=== PATIENT | female | born 1985 | race Two or more races ===

== ENCOUNTER 2025-08-12 14:05 | Inpatient (IN) | payer BC, OTHER ==
[~2025-08-12] VITALS: Ht 165.1 cm; Wt 122.2 kg
--- NOTE | 2025-08-12 14:28 | ED.PDOC ---
History of Present Illness HPI Comments 39 y/o F, with PMHx of HTN presents to the ED for CC of hypertension. Patient states, that she went to her annual check up with her PCP today (08/12/25) when she was relayed to the ED d/t her high blood pressure. Patient reports, to have had prior knowledge of her medical history however, endorses being non-complaint with her medications. Patient denies dizziness, headache, nausea, vomiting, or blurred vision. No other symptoms or modifying factors are present at this time. 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 Hx Family History Family History: Unknown Social History Smoker: Cigarettes Alcohol: Occasionally Drugs: Denies Drug Use Lives In: Home Constitutional: denies: chills, diaphoresis, fatigue, fever, malaise, sweats, weakness, others EENTM: denies: blurred vision, double vision, ear bleeding, ear discharge, ear drainage, ear pain, ear ringing, eye pain, eye redness, hearing loss, mouth pain, mouth swelling, nasal discharge, nose bleeding, nose congestion, nose pain, photophobia, tearing, throat pain, throat swelling, voice changes, others Respiratory: denies: cough, hemoptysis, orthopnea, SOB at rest, shortness of breath, SOB with excertion, stridor, wheezing, others Cardiovascular: denies: chest pain, dizzy spells, diaphoresis, Dyspnea on exertion, edema, irregular heart beat, left arm pain, lightheadedness, palpitations, PND, syncope, others Gastrointestinal: denies: abdomen distended, abdominal pain, blood streaked bowels, constipated, diarrhea, dysphagia, difficulty swallowing, hematemesis, melena, nausea, poor appetite, poor fluid intake, rectal bleeding, rectal pain, vomiting, others Genitourinary: denies: abnormal vagina bleeding, burning, dyspareunia, dysuria, flank pain, frequency, hematuria, incontinence, pain, , vagina discharge, urgency, others Neurological: denies: dizziness, fainting, headache, left sided numbness, left sided weakness, numbness, paresthesia, pre-existing deficit, right sided numbness, right sided weakness, seizure, speech problems, tingling, tremors, weakness, others Musculoskeletal: denies: back pain, gout, joint pain, joint swelling, muscle pain, muscle stiffness, neck pain, others Integumetry: denies: bruises, change in color, change in hair/nails, dryness, laceration, lesions, lumps, rash, wounds, others Allergic/Immunocompromised: denies: Difficulty Healing, Frequent Infections, Hives, Itching, others Hematologic/Lymphatic: denies: anemia, blood clots, easy bleeding, easy bruising, swollen glands, others Endocrine: denies: excessive hunger, excessive sweating, excessive thirst, excessive urination, flushing, intolerance to cold, intolerance to heat, unexplained weight gain, unexplained weight loss, others Psychiatric: denies: anxiety, bipolar disorder, depression, hopeless, panic disorder, schizophrenia, sleepless, suicidal, others All Other Systems: Reviewed and Negative Physical Exam General Appearance: No Apparent Distress, Normal HEENT: Normal ENT Inspection, Pharynx Normal Neck: Full Range of Motion, Non-Tender, Normal, Normal Inspection Respiratory: Chest Non-Tender, Lungs Clear, No Accessory Muscle Use, No Respiratory Distress, Normal Breath Sounds Cardiovascular: No Edema, No Murmur, No Gallop, Normal Peripheral Pulses, Regular Rate/Rhythm Breast Exam: Deferred Gastrointestinal: No Organomegaly, Non Tender, No Pulsatile Mass, Normal Bowel Sounds, Soft Genitalia: Deferred Pelvic: Deferred Rectal: Deferred Extremities: No calf tenderness, Normal capillary refill, Normal inspection, Normal range of motion, Non-tender, No pedal edema Musculoskeletal : Apperance: Normal Neurologic: Alert, nodulizer II-XII nml as Tested, No Motor Deficits, Normal Affect, Normal Mood, No Sensory Deficits Cerebellar Function: Normal Reflexes: Normal Skin: Dry, Normal Color, Warm Lymphatic: No Adenopathy Was a procedure done? Was a procedure done?: No Differential Dx Considerations may include: HYPERTENSIVE URGENCY, HYPERTENSIVE CRISIS, MEDICAL NON-COMPLIANCE. renal failure X-Ray, Labs, Meds, VS Vital Signs Date Time Temp Pulse Resp B/P (MAP) Pulse Ox O2 Delivery O2 Flow Rate FiO2 10/7/25 16:55 97.9 66 11 195/107 (136) 99 97.9 08/12/25 16:51 67 195/107 08/12/25 14:46 Room Air* 0 21 08/12/25 14:46 94 16 212/112 (145) 100 08/12/25 14:43 212/112 08/12/25 14:11 98.9 100 19 97 98.9 Lab Test 08/12/25 14:38 Range/Units Sodium Level 138 136-145 mmol/L Potassium Level 3.7 3.5-5.1 mmol/L Chloride Level 101 98-107 mmol/L Carbon Dioxide Level 25 20-31 mmol/L Anion Gap 12 5-15 Blood Urea Nitrogen 8 L 9-23 mg/dL Creatinine 0.73 0.550-1.02 mg/dL Glomerular Filtration Rate Calc 107 >90 mL/min BUN/Creatinine Ratio 11.0 10.0-20.0 Serum Glucose 107 H 74-106 mg/dL Calcium Level 9.8 8.7-10.4 mg/dL Current Medications Medications (Trade) Dose Ordered Sig/Kaleb Route Start Time Stop Time Status Last Admin Clonidine HCl (Catapres Tablet) 0.1 mg ONCE ONCE PO 08/12/25 14:30 08/12/25 14:31 DC 08/12/25 14:43 Labetalol HCl (Labetalol HCl) 10 mg ONCE ONCE IV 08/12/25 16:00 08/12/25 16:01 DC 08/12/25 16:51 Time of 1ST Reevaluation: 14:50 Reevaluation 1ST: Unchanged Patient Education/Counseling: Diagnosis, Treatment, Prognosis, Need For Follow Up Family Education/Counseling: No Family Present Comments This is a patient with uncontrolled hypertension due to noncompliance. Patient 's blood pressure is difficult to control with two doses of medications in the emergency room including IV labetalol. Patient will be admitted for further evaluation and treatment for the recalcitrant and hypertension. Additional Information The following tests were ordered, and results were reviewed by me: EDOUARD Additional information was gathered from interviewing the following independent historian: PATIENT'S SON I discussed treatments and results with medical personnel and: PATIENT Comprehensive systems review obtained and negative except for what is stated in the HPI. SEPSIS Sepsis Screen Date sepsis recognized/suspect: Aug 12, 2025 Time Sepsis recognized/suspect: 1411 Recent Procedure: No On Antibiotic Therapy: No Respiratory Rate >20: No Heart Rate >90: No Temp<36 C (96.8 F) or >38.3 C: No SBP <90 or MAP <65 mmHG: No New Acute Mental Status Change: No Is the patient on CPAP, BIPAP,: No Physician Orders Electrocardigram (08/12/25 14:23) Vital Signs Date Time Temp Pulse Resp B/P (MAP) Pulse Ox O2 Delivery O2 Flow Rate FiO2 08/12/25 16:55 97.9 66 11 195/107 (136) 99 97.9 08/12/25 16:51 67 195/107 08/12/25 14:46 Room Air* 0 21 08/12/25 14:46 94 16 212/112 (145) 100 08/12/25 14:43 212/112 08/12/25 14:11 98.9 100 19 97 98.9 Medications Medications Dose Ordered Sig/Kaleb Route Start Time Stop Time Status Last Admin Dose Admin Clonidine HCl 0.1 mg ONCE ONCE PO 08/12/25 14:30 08/12/25 14:31 DC 08/12/25 14:43 Labetalol HCl 10 mg ONCE ONCE IV 08/12/25 16:00 08/12/25 16:01 DC 08/12/25 16:51 Departure 1 Departure Time of Disposition: 17:45 Impression: Primary Impression: Uncontrolled hypertension Disposition: 09 ADMITTED INPATIENT Admit to: Tele Condition: Stable Discharged With: Self Critical Care Note Critical Care Time?: No Stability Stability form required: No Heart Score Heart Score: Heart Score Response (Comments) Value History N/A 0 EKG N/A 0 Age N/A 0 Risk Factors N/A 0 Troponin N/A 0 Total 0 I personally scribed for FRANCISCO J RODRIGUEZ MD ([email or web address]) on 08/12/25 at 14:28. Electronically submitted by Glenis Gross ([email or web address]). I personally scribed for FRANCISCO J RODRIGUEZ MD ([email or web address]) on 08/12/25 at 16:41. Electronically submitted by Glenis Gross ([email or web address]). FRANCISCO J RODRIGUEZ MD Aug 12, 2025 14:28
[2025-08-12 14:58] LABS: Anion Gap 12 (5-15); Carbon Dioxide 25 mmol/L (20-31); Chloride 101 mmol/L (98-107); Potassium 3.7 mmol/L (3.5-5.1); Sodium 138 mmol/L (136-145)
[2025-08-12 14:59] LABS: Calcium 9.8 mg/dL (8.7-10.4)
[2025-08-12 15:04] LABS: BUN/Creatinine Ratio 11.0 (10.0-20.0)
[2025-08-12 15:05] LABS: Blood Urea Nitrogen 8 mg/dL (9-23); Glucose 107 mg/dL (74-106)
[2025-08-12] MEDS: LABETALOL HCL 20 MG/4 ML VL IV ONE (16:51)
[2025-08-12] MEDS: NITROGLYCERIN 50MG/250ML 250 ML IV ONE (18:38)
[2025-08-12] MEDS ORDERED: NITROGLYCERIN 0.4 MG SL TAB SL PRN (19:45)
[2025-08-12] MEDS ORDERED: MORPHINE SULFATE INJ 2 MG/ml SYRG IV PRN (19:45)
[2025-08-12 19:48] LABS: Hematocrit 40.4 % (36.0-46.0); Hemoglobin 13.2 g/dL (12.2-16.2); Mean Corpuscular Hemoglobin 27.9 pg (28.0-32.0); Mean Corpuscular Volume 85.5 fL (80.0-100.0); Nucleated Red Blood Cells % 0.0 %
[2025-08-12 19:59] VITALS: PULSE 81; RESP 21; O2SAT 96
--- NOTE | 2025-08-12 20:08 | DVH ---
CLINICAL HISTORY: sob TECHNIQUE: Single view of the chest was obtained. COMPARISON: None FINDINGS: The heart size and pulmonary vasculature are normal. The lungs are clear. IMPRESSION: NO ACUTE CARDIOPULMONARY PROCESS.
[2025-08-12] MEDS: ONDANSETRON HCL 4 MG/2 ML VIAL IV PRN (23:36)
[2025-08-13] VITALS (89 sets, daily range): BP systolic 116–207; BP diastolic 62–112; PULSE 62–115; RESP 8–23; TEMP 98.2–98.7; O2SAT 91–100
--- NOTE | 2025-08-13 00:51 | DVHHP2 ---
History of Present Illness Reason for Visit: Hypertension History of Present Illness 39-year-old female presents for evaluation of hypertension. Patient reports having a follow up appointment with her primary care provider today. She was noted to have a blood pressure in the 200s and was advised to present to the emergency department for further evaluation. Patient reports not taking her antihypertensives for two months. Denies headache or blurred vision. No chest pain or shortness for breath. Past Medical History Hypertension Past Surgical History Denies Family History Noncontributory Smoke: <1 pack per day ALCOHOL: occassional Drugs: None Lives: with Family Review of Systems Review of Systems Review of systems are currently negative otherwise addressed in HPI. Allergies: Coded Allergies: NO KNOWN ALLERGIES (Unverified , 08/12/25) Medications Current Medications Medications Dose Ordered Sig/Kaleb Route Start Time Stop Time Status Last Admin Dose Admin Amlodipine Besylate 10 mg DAILY PO 08/13/25 10:00 Clonidine HCl 0.1 mg Q6HP PRN PO 08/12/25 19:45 Ondansetron HCl 4 mg Q4HP PRN IV 08/12/25 19:45 08/12/25 23:36 4 MG Acetaminophen 650 mg Q6HP PRN PO 08/12/25 19:45 Nitroglycerin 0.4 mg Q5MINP PRN SL 08/12/25 19:45 Morphine Sulfate 2 mg Q30M PRN IV 08/12/25 19:45 Exam Vital Signs Vital Signs Date Time Temp Pulse Resp B/P (MAP) Pulse Ox O2 Delivery O2 Flow Rate FiO2 08/12/25 22:55 66 18 144/74 (97) 93 08/12/25 19:59 Room Air* 0 21 08/12/25 19:30 97.9 97.9 Exam Gen: 39-year-old female in mild distress. Skin: Warm, dry, normal color and texture, no rash. HEENT: Normocephalic atraumatic, mucous membranes moist and pink. Neck: Cervical and supraclavicular nodes normal without enlargement, trachea is midline, thyroid gland is normal without masses. Pulmonary: Clear to auscultation and percussion bilaterally. Cardiac: Regular rate and rhythm. No murmur Abdomen: Soft, nontender, nondistended, bowel sounds present all 4 quadrants, no guarding, no rigidity, no organomegaly. Extremities: No cyanosis, clubbing, no edema Neuro: Cranial nerves II through XII grossly intact, normal affect and speech, no focal motor deficits. Labs/Xrays Labs Test 08/12/25 14:38 Range/Units White Blood Count 15.1 H 4.4-10.8 10^3/uL Red Blood Count 4.73 4.0-5.20 10^6/uL Hemoglobin 13.2 12.2-16.2 g/dL Hematocrit 40.4 36.0-46.0 % Mean Corpuscular Volume 85.5 80.0-100.0 fL Mean Corpuscular Hemoglobin 27.9 L 28.0-32.0 pg Mean Corpuscular Hemoglobin Concent 32.6 32.0-36.0 g/dL Red Cell Distribution Width 15.1 H 11.8-14.3 % Platelet Count 298 140-450 10^3/uL Mean Platelet Volume 10.5 6.9-10.8 fL Neutrophils (%) (Auto) 75.8 37.0-80.0 % Lymphocytes (%) (Auto) 16.2 10.0-50.0 % Monocytes (%) (Auto) 6.6 0.0-12.0 % Eosinophils (%) (Auto) 0.6 0.0-7.0 % Basophils (%) (Auto) 0.8 0.0-2.0 % Neutrophils # (Auto) 11.4 H 1.6-8.6 10 ^3/uL Lymphocytes # (Auto) 2.4 0.4-5.4 10 ^3/uL Monocytes # (Auto) 1.0 0-1.3 10 ^3/uL Eosinophils # (Auto) 0.1 0-0.8 10 ^3/uL Basophils # (Auto) 0.1 0-0.2 10 ^3/uL Nucleated Red Blood Cells 0.0 % Sodium Level 138 136-145 mmol/L Potassium Level 3.7 3.5-5.1 mmol/L Chloride Level 101 98-107 mmol/L Carbon Dioxide Level 25 20-31 mmol/L Anion Gap 12 5-15 Blood Urea Nitrogen 8 L 9-23 mg/dL Creatinine 0.73 0.550-1.02 mg/dL Glomerular Filtration Rate Calc 107 >90 mL/min BUN/Creatinine Ratio 11.0 10.0-20.0 Serum Glucose 107 H 74-106 mg/dL Calcium Level 9.8 8.7-10.4 mg/dL SEPSIS Sepsis Screen Date sepsis recognized/suspect: Aug 12, 2025 Time Sepsis recognized/suspect: 1929 Recent Procedure: No On Antibiotic Therapy: No Respiratory Rate >20: Yes Heart Rate >90: No Temp<36 C (96.8 F) or >38.3 C: No SBP <90 or MAP <65 mmHG: No New Acute Mental Status Change: No Is the patient on CPAP, BIPAP,: No Physician Orders Nitroglycerin 50mg/250ml (Tridil) (08/12/25 18:30) Amlodipine Tablet (Norvasc Tablet) (08/13/25 10:00) Clonidine Hcl Tablet (Catapres Tablet) (08/12/25 19:45) Chest Xray 1 View (08/12/25:31) Basic Metabolic Panel (08/13/25 04:00) Admit (08/12/25 19:31) Ondansetron Hcl (Zofran) (08/12/25 19:45) Cardiac Diet-2gna,Lofat,Lochol (08/13/25 Breakfast) Echo 2d Mode Cardiac Dop (08/12/25 19:31) Condition: Serious (08/12/25 19:31) Acetaminophen Tablet (Tylenol Tablet) (08/12/25 19:45) Bedrest With Bathroom Privileg (08/12/25 19:31) Nitroglycerin Sublingual (Ntrostat Subli (08/12/25 19:45) Morphine Sulfate Injection (08/12/25 19:45) Stat Ekg For Chest Pain (08/12/25 19:31) Notify Md Of Changes From Base (08/12/25 19:31) Materials Clerk For 24 Hours (08/12/25 19:31) Emergency Dysrhythmia Protocol (08/12/25:31) Rhythm Strips Once Every Shift (08/12/25:31) Oxygen By Nasal Cannula (08/12/25 19:31) Transfer Orders (08/13/25 00:34) Vital Signs Date Time Temp Pulse Resp B/P (MAP) Pulse Ox O2 Delivery O2 Flow Rate FiO2 08/12/25 22:55 66 18 144/74 (97) 93 08/12/25 22:41 66 18 128/71 (90) 93 08/12/25 22:25 71 15 152/68 (96) 92 08/12/25 22:11 65 17 144/65 (91) 92 08/12/25 22:06 140/80 08/12/25 21:55 69 14 128/72 (90) 92 08/12/25 21:40 70 14 135/68 (90) 94 08/12/25 21:40 135/68 08/12/25 21:35 120/62 08/12/25 21:26 65 17 134/62 (86) 94 08/12/25 21:26 134/62 08/12/25 21:15 70 10 124/81 (95) 94 08/12/25 21:15 124/81 08/12/25 21:05 135/80 08/12/25 21:02 68 16 140/83 (102) 94 08/12/25 20:41 64 19 177/98 (124) 94 08/12/25 20:30 71 10 156/92 (113) 92 08/12/25 20:26 162/85 08/12/25 20:15 67 17 146/79 (101) 93 08/12/25 20:05 141/93 08/12/25 20:01 69 15 148/95 (112) 89 08/12/25 19:59 81 21 96 Room Air* 0 21 08/12/25 19:45 86 16 150/87 (108) 91 08/12/25 19:45 150/87 08/12/25 19:40 159/81 08/12/25 19:35 179/107 08/12/25 19:30 97.9 81 21 149/85 (106) 96 97.9 08/12/25 19:26 158/84 08/12/25 19:05 175/103 08/12/25 19:00 183/97 08/12/25 18:55 198/87 08/12/25 18:50 196/96 08/12/25 18:38 194/99 08/12/25 18:00 72 208/104 08/12/25 18:00 72 15 208/104 (138) 94 08/12/25 16:55 97.9 66 11 195/107 (136) 99 97.9 08/12/25 16:51 67 195/107 Laboratory Tests Test 08/12/25 14:38 White Blood Count 15.1 10^3/uL (4.4-10.8) H Medications Medications Dose Ordered Sig/Kaleb Route Start Time Stop Time Status Last Admin Dose Admin Clonidine HCl 0.1 mg ONCE ONCE PO 08/12/25 14:30 08/12/25 14:31 DC 08/12/25 14:43 0.1 MG Labetalol HCl 10 mg ONCE ONCE IV 08/12/25 16:00 08/12/25 16:01 DC 08/12/25 16:51 10 MG Nitroglycerin 250 ml @ 1.5 mls/hr Q24H ONCE IV 08/12/25 18:30 08/13/25 18:29 08/12/25 18:38 1.5 MLS/HR Ondansetron HCl 4 mg Q4HP PRN IV 08/12/25 19:45 08/12/25 23:36 4 MG Assessment/Plan Assessment/Plan Assessment Hypertensive urgency Noncompliant Obesity Plan Admit the patient to [facility] to the hospitalist Continue nitroglycerin drip, use as needed antihypertensives to wean the drip Resume home medications Echocardiogram pending Continue treatment per orders. Plan discussed with: Patient My Orders Orders - JASPAL HDZ Procedure Category Date Status Time Amlodipine Tablet PHA 08/13/25 In Process (Norvasc Tablet) 10:00 Clonidine Hcl Tablet PHA 08/12/25 In Process (Catapres Tablet) 19:45 Chest Xray 1 View XY 08/12/25 Resulted 19:31 Basic Metabolic Panel LAB 08/13/25 Logged 04:00 Admit ADMIT 08/12/25 Transmitted 19:31 Ondansetron Hcl PHA 08/12/25 In Process (Zofran) 19:45 Cardiac DIET 08/13/25 Transmitted Diet-2gna,Lofat,Lochol Breakfast Echo 2d Mode Cardiac US 08/12/25 Logged DOP 19:31 Condition: Serious CHARO 08/12/25 In Process 19:31 Acetaminophen Tablet PHA 08/12/25 In Process (Tylenol Tablet) 19:45 Bedrest With Bathroom CHARO 08/12/25 In Process Privileg 19:31 Nitroglycerin PHA 08/12/25 In Process Sublingual (Ntrostat 19:45 Morphine Sulfate PHA 08/12/25 In Process Injection 19:45 Stat Ekg For Chest CHARO 08/12/25 In Process Pain 19:31 Notify Md Of Changes CHARO 08/12/25 In Process From Base 19:31 Materials Clerk For [facility] 08/12/25 In Process 24 Hours 19:31 Emergency Dysrhythmia CHARO 08/12/25 In Process Protocol 19:31 Rhythm Strips Once CHARO 08/12/25 In Process Every Shift 19:31 Oxygen By Nasal RT 08/12/25 Transmitted Cannula 19:31 Transfer Orders XFER 08/13/25 Transmitted 00:34 Date of Service: Aug 12, 2025 Billing Provider: JASPAL HDZ Common Visit Codes: [id number] CARE 30-74 MIN JASPAL HDZ Aug 13, 2025 00:51
[2025-08-13 01:37] LABS: Urine Protein, UAD TRACE (Negative)
[2025-08-13] MEDS: ACETAMINOPHEN 325 MG TAB PO PRN (03:24)
[2025-08-13 05:16] LABS: Chloride 101 mmol/L (98-107); Potassium 3.5 mmol/L (3.5-5.1); Sodium 139 mmol/L (136-145)
[2025-08-13 05:17] LABS: Calcium 9.5 mg/dL (8.7-10.4)
[2025-08-13 05:22] LABS: BUN/Creatinine Ratio 13.0 (10.0-20.0); Blood Urea Nitrogen 9 mg/dL (9-23)
[2025-08-13 05:32] LABS: Glucose 139 mg/dL (74-106)
[2025-08-13 05:43] LABS: Anion Gap 13 (5-15); Carbon Dioxide 25 mmol/L (20-31)
--- NOTE | 2025-08-13 09:45 | DVHPNRES ---
Progress Note Date Seen: Aug 13, 2025 Resident Creating Document: JAHAIRA CANTU RESDIENT Medical Necessity Reason Pt with a Central, PICC or Fol: No Subjective Review of Systems This is a 39-year-old female with past medical history of hypertension from PCP clinic due to high blood pressure. Per patient, her blood pressure at clinic was more than 200 and was referred to ER. Upon ER arrival, blood pressure was 212/112. She also reports of nausea, and vomiting. She denies headache, chest pain, shortness of breath, palpitation, or blurry vision. In ER, patient was given oral amlodipine, clonidine, and IV haloperidol, which could not control blood patient and subsequently patient was put on nitroglycerin drip. PMHx: Hypertension Family history: Mother has hypertension, and father had diabetes Social history: Smokes cigar, 1 per day, drank occasionally, denies any other drug use. Lives at home with her mother and . Home medication: Patient was previously prescribed amlodipine 5 mg daily, but has not taken for a couple of months Allergic history: No known allergy Patient seen and examined at the bedside. Patient is complaining of nausea and vomiting. Objective vital signs Vital Sign Date Time Temp Pulse Resp B/P (MAP) Pulse Ox O2 Delivery O2 Flow Rate FiO2 08/13/25 07:03 168/101 08/13/25 06:45 68 18 96 08/13/25 05:45 Room Air* 0 21 08/13/25 04:15 98.4 98.4 Total Intake and Output 08/12/25 08/12/25 08/13/25 15:00 23:00 07:00 Intake Total 328.5 ml Output Total 0 ml Balance 328.5 ml medications Current Medications Medications Dose Ordered Sig/Kaleb Route Start Time Stop Time Status Last Admin Dose Admin Amlodipine Besylate 10 mg DAILY PO 08/13/25 10:00 Clonidine HCl 0.1 mg Q6HP PRN PO 08/12/25 19:45 08/13/25 03:24 0.1 MG Ondansetron HCl 4 mg Q4HP PRN IV 08/12/25 19:45 08/12/25 23:36 4 MG Acetaminophen 650 mg Q6HP PRN PO 08/12/25 19:45 08/13/25 03:24 650 MG Nitroglycerin 0.4 mg Q5MINP PRN SL 08/12/25 19:45 Morphine Sulfate 2 mg Q30M PRN IV 08/12/25 19:45 Examination General Appearance: Alert, Oriented X3, Cooperative, in mild distress HEENT: Atraumatic, PERRLA, EOMI, Mucous membrane moist/pink Respiratory: Clear to auscultation, Normal air movement Cardiovascular: Regular rate, Normal S1, Normal S2, No murmurs, no chest wall tenderness Abdominal: Normal bowel sounds, Soft, No tenderness, No hepatospenomegaly, No masses Extremities: No clubbing, No cyanosis, No edema, Normal pulses, No tenderness/swelling Skin: No rashes, No breakdown, No significant lesion Neuro: Normal gait, Normal speech, Strength at 5/5 X4 ext, Normal tone, Sensation intact, Cranial nerves 3-12 NL, Reflexes 2+ Psych/Mental Status: Mental status NL, Mood NL laboratory and microbiology Laboratory Tests 08/13/25 04:45 08/12/25 14:38 Test 08/13/25 04:45 Range/Units Serum Glucose 139 H 74-106 mg/dL Labs and/or images reviewed: Labs reviewed by me, Image(s) reviewed by me Problem List/Assessment/Plan Problem List/Assessment/Plan 39-year-old female with past medical of hypertension, referred from PCP office due to high blood pressure. Patient was admitted on 08/12. NEUROLOGICAL Hypertensive emergency leading to possible hypertensive encephalopathy * Plan: IV antihypertensive CARDIOVASCULAR: Hypertensive emergency Medication nonadherence * EKGs shows, sinus rhythm with hypertrophic changes * Serial trop I within normal limits * Chest x-ray shows no significant intrathoracic abnormalities * Plan: Nicardipine drip, lisinopril, hydrochlorothiazide and diltiazem, labetalol p.r.n. GASTROINTESTINAL/NUTRITION: Nausea and vomiting * Plan: Zofran PRN ENDOCRINE: Prediabetes METABOLIC: Morbid obesity * Plan: Patient consulted for healthy lifestyle, including physical activity, and healthy food intake DIET: Cardiac diet DVT prophylax: Lovenox LINES/DEVICES IV access: Peripheral line Drips: Lovenox Disposition: Continue ICU status Family: Patients mother updated at the bedside. Critical care time: Spent > 68 min, spent in direct critical care, including evaluation, management, review of labs/imaging, and multidisciplinary/family discussions, (excluding any procedures). Case discussed with Dr. Armas Plan discussed with: Patient, Other Date of Service: Aug 13, 2025 Billing Provider: JASPAL ARMAS MD Common Visit Codes: [id number] CARE 30-74 MIN JAHAIRA CANTU Aug 13, 2025 09:45 JASPAL ARMAS MD Aug 14, 2025 13:06
[2025-08-13] MEDS ORDERED: LISINOPRIL 5 MG TAB PO SCH (10:00)
[2025-08-13] MEDS: NITROGLYCERIN 50MG/250ML 250 ML IV SCH ×2 (10:19→11:30)
[2025-08-13] MEDS: LISINOPRIL 5 MG TAB PO ONE (10:26)
[2025-08-13 10:49] LABS: Triglycerides 77 mg/dL (< 150)
[2025-08-13 10:54] LABS: Cholesterol 221 mg/dL (< 200); HDL Cholesterol 60 mg/dL (40-59)
[2025-08-13 11:57] LABS: Hematocrit 35.7 % (36.0-46.0); Hemoglobin 11.8 g/dL (12.2-16.2); Mean Corpuscular Hemoglobin 27.9 pg (28.0-32.0); Mean Corpuscular Volume 84.7 fL (80.0-100.0); Nucleated Red Blood Cells % 0.0 %
[2025-08-13] MEDS: SODIUM CHLORIDE 0.9% 1,000 ML IV SCH (12:00)
[2025-08-13] MEDS: hydroCHLOROthiazide 25 MG TAB PO ONE (12:32)
[2025-08-13] MEDS ORDERED: SODIUM CHLORIDE 0.9% 1,000 ML IV ONE (13:30)
--- NOTE | 2025-08-13 13:55 | DVH ---
CHEST RADIOGRAPH Indication: Pneumonia Technique: Single frontal view of the chest was obtained COMPARISON: XY CHEST XRAY 1 VIEW on DOS: 08/12/25 FINDINGS: Lines and Tubes: None Lungs: Clear Pleura: No effusion. No pneumothorax. Cardiomediastinal contours: Unremarkable Bones: Unremarkable IMPRESSION: No acute disease.
[2025-08-13] MEDS: dilTIAZem 120MG ER CAP PO ONE (17:51)
[2025-08-13] MEDS: ENOXAPARIN SOD 40 MG/0.4 ML SYRINGE SC ONE (20:20)
[2025-08-14] VITALS (69 sets, daily range): BP systolic 119–178; BP diastolic 63–107; PULSE 64–99; RESP 10–22; TEMP 98.2–99; O2SAT 89–100
[2025-08-14] MEDS: LABETALOL HCL 20 MG/4 ML VL IV PRN (02:54)
[2025-08-14 03:52] LABS: Hematocrit 36.1 % (36.0-46.0); Hemoglobin 11.9 g/dL (12.2-16.2); Mean Corpuscular Hemoglobin 27.7 pg (28.0-32.0); Mean Corpuscular Volume 84.2 fL (80.0-100.0); Nucleated Red Blood Cells % 0.0 %
[2025-08-14 04:20] LABS: Alanine Aminotransferase 17 U/L (7-40); Albumin 4.6 g/dL (3.2-4.8); Alkaline Phosphatase 64 U/L (46-116); Anion Gap 12 (5-15); BUN/Creatinine Ratio 9.6 (10.0-20.0); Calcium 9.6 mg/dL (8.7-10.4); Carbon Dioxide 26 mmol/L (20-31); Chloride 102 mmol/L (98-107); Sodium 140 mmol/L (136-145); Total Protein 7.9 g/dL (5.7-8.2)
[2025-08-14 04:30] LABS: Bilirubin, Total 1.4 mg/dL (0.2-1.0); Blood Urea Nitrogen 7 mg/dL (9-23); Glucose 117 mg/dL (74-106); Potassium 2.8 mmol/L (3.5-5.1)
[2025-08-14] MEDS: POTASSIUM CHL 20MEQ/100ML 100 ML IV SCH (05:17)
[2025-08-14] MEDS: POTASSIUM EFFERVESENT TAB 25 MEQ PO ONE (07:00)
--- NOTE | 2025-08-14 09:29 | ECG ---
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
[2025-08-14] MEDS: ENOXAPARIN SOD 40 MG/0.4 ML SYRINGE SC SCH (10:00)
[2025-08-14] MEDS: hydroCHLOROthiazide 25 MG TAB PO SCH (10:43)
[2025-08-14] MEDS: dilTIAZem 120MG ER CAP PO SCH (10:44)
[2025-08-14] MEDS: LISINOPRIL 5 MG TAB PO SCH (10:44)
--- NOTE | 2025-08-14 17:17 | DVHPNRES ---
Progress Note Date Seen: Aug 14, 2025 Resident Creating Document: JAHAIRA CANTU RESDIENT Medical Necessity Reason Pt with a Central, PICC or Fol: No Subjective Review of Systems This is a 39-year-old female with past medical history of hypertension from PCP clinic due to high blood pressure. Per patient, her blood pressure at clinic was more than 200 and was referred to ER. Upon ER arrival, blood pressure was 212/112. She also reports of nausea, and vomiting. She denies headache, chest pain, shortness of breath, palpitation, or blurry vision. In ER, patient was given oral amlodipine, clonidine, and IV haloperidol, which could not control blood patient and subsequently patient was put on nitroglycerin drip. PMHx: Hypertension Family history: Mother has hypertension, and father had diabetes Social history: Smokes cigar, 1 per day, drank occasionally, denies any other drug use. Lives at home with her mother and . Home medication: Patient was previously prescribed amlodipine 5 mg daily, but has not taken for a couple of months Allergic history: No known allergy Patient seen and examined at the bedside. Patient is complaining of nausea and vomiting. Objective vital signs Vital Sign Date Time Temp Pulse Resp B/P (MAP) Pulse Ox O2 Delivery O2 Flow Rate FiO2 08/14/25 16:26 71 159/91 08/14/25 16:16 17 95 08/14/25 16:00 Nasal Cannula* 2 28 08/14/25 12:00 98.9 98.9 Total Intake and Output 08/13/25 08/13/25 08/14/25 15:00 23:00 07:00 Intake Total 393.0 ml 1312.0 ml 150 ml Output Total 1400 ml 600 ml Balance 393.0 ml -88.0 ml -450 ml medications Current Medications Medications Dose Ordered Sig/Kaleb Route Start Time Stop Time Status Last Admin Dose Admin Ondansetron HCl 4 mg Q4HP PRN IV 08/12/25 19:45 08/13/25 14:44 4 MG Acetaminophen 650 mg Q6HP PRN PO 08/12/25 19:45 08/13/25 03:24 650 MG Lisinopril 10 mg DAILY PO 08/14/25 10:00 08/14/25 10:44 10 MG Hydrochlorothiazide 25 mg DAILY PO 08/14/25 10:00 08/14/25 10:43 25 MG Diltiazem HCl 120 mg DAILY PO 08/14/25 10:00 08/14/25 10:44 120 MG Labetalol HCl 10 mg Q4HP PRN IV 08/13/25 16:15 08/14/25 15:26 10 MG Enoxaparin Sodium 40 mg DAILY SC 08/14/25 10:00 08/14/25 10:00 40 MG Examination General Appearance: Alert, Oriented X3, Cooperative, in mild distress HEENT: Atraumatic, PERRLA, EOMI, Mucous membrane moist/pink Respiratory: Clear to auscultation, Normal air movement Cardiovascular: Regular rate, Normal S1, Normal S2, No murmurs, no chest wall tenderness Abdominal: Normal bowel sounds, Soft, No tenderness, No hepatospenomegaly, No masses Extremities: No clubbing, No cyanosis, No edema, Normal pulses, No tenderness/swelling Skin: No rashes, No breakdown, No significant lesion Neuro: Normal gait, Normal speech, Strength at 5/5 X4 ext, Normal tone, Sensation intact, Cranial nerves 3-12 NL, Reflexes 2+ Psych/Mental Status: Mental status NL, Mood NL laboratory and microbiology Laboratory Tests 08/14/25 03:15 Test 08/14/25 03:15 Range/Units Serum Glucose 117 H 74-106 mg/dL Microbiology Date/Time Source Procedure Growth Status 08/13/25 09:15 Nose MRSA Screen - Final Complete Labs and/or images reviewed: Labs reviewed by me, Image(s) reviewed by me Problem List/Assessment/Plan Problem List/Assessment/Plan 39-year-old female with past medical of hypertension, referred from PCP office due to high blood pressure. Patient was admitted on 08/12. NEUROLOGICAL Hypertensive emergency leading to possible hypertensive encephalopathy * Plan: IV antihypertensive CARDIOVASCULAR: Hypertensive emergency Medication nonadherence * EKGs shows, sinus rhythm with hypertrophic changes * Serial trop I within normal limits * Chest x-ray shows no significant intrathoracic abnormalities * Plan: lisinopril, hydrochlorothiazide and diltiazem, labetalol p.r.n. GASTROINTESTINAL/NUTRITION: Intractable Nausea and vomiting * Plan: Zofran PRN ENDOCRINE: Prediabetes METABOLIC: Morbid obesity * Plan: Patient consulted for healthy lifestyle, including physical activity, and healthy food intake DIET: Cardiac diet DVT prophylax: Lovenox LINES/DEVICES IV access: Peripheral line Drips: Lovenox Disposition: Downgraded to tele Family: Patients mother updated at the bedside. Critical care time: Spent > 58 min, spent in direct critical care, including evaluation, management, review of labs/imaging, and multidisciplinary/family discussions, (excluding any procedures). Case discussed with Dr. Armas Plan discussed with: Other My Orders My Orders Orders - JAHAIRA CANTU Procedure Category Date Status Time Enoxaparin Sodium PHA 08/14/25 In Process (Lovenox) 10:00 Transfer Orders XFER 08/14/25 Transmitted 09:29 Date of Service: Aug 14, 2025 Billing Provider: JASPAL ARMAS MD Common Visit Codes: [id number] CARE 30-74 MIN JAHAIRA CANTU RESDIENT Aug 14, 2025 17:17 JASPAL ARMAS MD Aug 16, 2025 11:55
[2025-08-14] MEDS: hydrALAZINE HCL 20 MG/ML VL IV ONE (17:18)
[2025-08-15] VITALS (7 sets, daily range): BP systolic 150–221; BP diastolic 91–130; PULSE 69–97; RESP 17–20; TEMP 98.1–98.9; O2SAT 96–100
[2025-08-15 06:44] LABS: Alanine Aminotransferase 16 U/L (7-40); Alkaline Phosphatase 56 U/L (46-116); Anion Gap 12 (5-15); BUN/Creatinine Ratio 12.5 (10.0-20.0); Blood Urea Nitrogen 10 mg/dL (9-23); Calcium 9.7 mg/dL (8.7-10.4); Carbon Dioxide 26 mmol/L (20-31); Chloride 101 mmol/L (98-107); Sodium 139 mmol/L (136-145)
[2025-08-15 06:45] LABS: Albumin 4.4 g/dL (3.2-4.8); Total Protein 7.5 g/dL (5.7-8.2)
[2025-08-15 06:47] LABS: Bilirubin, Total 1.1 mg/dL (0.2-1.0); Glucose 111 mg/dL (74-106); Potassium 3.2 mmol/L (3.5-5.1)
[2025-08-15 07:01] LABS: Hematocrit 36.8 % (36.0-46.0); Hemoglobin 12.2 g/dL (12.2-16.2); Mean Corpuscular Hemoglobin 28.0 pg (28.0-32.0); Mean Corpuscular Volume 84.7 fL (80.0-100.0); Nucleated Red Blood Cells % 0.0 %
[2025-08-15] MEDS: POTASSIUM EFFERVESENT TAB 25 MEQ PO ONE (09:50)
--- NOTE | 2025-08-15 11:04 | DVHPNRES ---
Progress Note Date Seen: Aug 15, 2025 Resident Creating Document: JAHAIRA CANTU RESDIENT Medical Necessity Reason Pt with a Central, PICC or Fol: No Subjective Review of Systems This is a 39-year-old female with past medical history of hypertension from PCP clinic due to high blood pressure. Per patient, her blood pressure at clinic was more than 200 and was referred to ER. Upon ER arrival, blood pressure was 212/112. She also reports of nausea, and vomiting. She denies headache, chest pain, shortness of breath, palpitation, or blurry vision. In ER, patient was given oral amlodipine, clonidine, and IV haloperidol, which could not control blood patient and subsequently patient was put on nitroglycerin drip. PMHx: Hypertension Family history: Mother has hypertension, and father had diabetes Social history: Smokes cigar, 1 per day, drank occasionally, denies any other drug use. Lives at home with her mother and . Home medication: Patient was previously prescribed amlodipine 5 mg daily, but has not taken for a couple of months Allergic history: No known allergy Patient seen and examined at the bedside. Patient is complaining of nausea and vomiting. Blood pressure is still uncontrolled, increased dose of lisinopril and diltiazem. Objective vital signs Vital Sign Date Time Temp Pulse Resp B/P (MAP) Pulse Ox O2 Delivery O2 Flow Rate FiO2 08/15/25 09:52 184/113 08/15/25 09:51 70 08/15/25 08:00 17 97 Nasal Cannula* 2 28 08/15/25 05:00 98.9 98.9 Total Intake and Output 08/14/25 08/14/25 08/15/25 15:00 23:00 07:00 Intake Total 300 ml 100 ml 600 ml Balance 300 ml 100 ml 600 ml medications Current Medications Medications Dose Ordered Sig/Kaleb Route Start Time Stop Time Status Last Admin Dose Admin Ondansetron HCl 4 mg Q4HP PRN IV 08/12/25 19:45 08/13/25 14:44 4 MG Acetaminophen 650 mg Q6HP PRN PO 08/12/25 19:45 08/15/25 05:21 650 MG Lisinopril 10 mg DAILY PO 08/14/25 10:00 08/15/25 09:52 10 MG Hydrochlorothiazide 25 mg DAILY PO 08/14/25 10:00 08/15/25 09:51 25 MG Diltiazem HCl 120 mg DAILY PO 08/14/25 10:00 08/15/25 09:51 120 MG Labetalol HCl 10 mg Q4HP PRN IV 08/13/25 16:15 08/15/25 05:19 10 MG Enoxaparin Sodium 40 mg DAILY SC 08/14/25 10:00 08/15/25 09:50 40 MG Examination General Appearance: Alert, Oriented X3, Cooperative, in mild distress HEENT: Atraumatic, PERRLA, EOMI, Mucous membrane moist/pink Respiratory: Clear to auscultation, Normal air movement Cardiovascular: Regular rate, Normal S1, Normal S2, No murmurs, no chest wall tenderness Abdominal: Normal bowel sounds, Soft, No tenderness, No hepatospenomegaly, No masses Extremities: No clubbing, No cyanosis, No edema, Normal pulses, No tenderness/swelling Skin: No rashes, No breakdown, No significant lesion Neuro: Normal gait, Normal speech, Strength at 5/5 X4 ext, Normal tone, Sensation intact, Cranial nerves 3-12 NL, Reflexes 2+ Psych/Mental Status: Mental status NL, Mood NL laboratory and microbiology Laboratory Tests 08/15/25 05:41 Test 08/15/25 05:41 Range/Units Serum Glucose 111 H 74-106 mg/dL Microbiology Date/Time Source Procedure Growth Status 08/13/25 09:15 Nose MRSA Screen - Final Complete Labs and/or images reviewed: Labs reviewed by me, Image(s) reviewed by me Problem List/Assessment/Plan Problem List/Assessment/Plan 39-year-old female with past medical of hypertension, referred from PCP office due to high blood pressure. Patient was admitted on 08/12. NEUROLOGICAL Hypertensive emergency leading to possible hypertensive encephalopathy * Plan: IV antihypertensive CARDIOVASCULAR: Hypertensive emergency Medication nonadherence * EKGs shows, sinus rhythm with hypertrophic changes * Serial trop I within normal limits * Chest x-ray shows no significant intrathoracic abnormalities * Plan: lisinopril, hydrochlorothiazide and diltiazem, labetalol p.r.n. GASTROINTESTINAL/NUTRITION: Intractable Nausea and vomiting * Plan: Zofran PRN ENDOCRINE: Prediabetes METABOLIC: Morbid obesity * Plan: Patient consulted for healthy lifestyle, including physical activity, and healthy food intake DIET: Cardiac diet DVT prophylax: Lovenox LINES/DEVICES IV access: Peripheral line Drips: Lovenox Disposition: tele Family: Patients mother updated at the bedside. Case discussed with Dr. Chavarria Plan discussed with: Patient, Other JAHAIRA CANTU Aug 15, 2025 11:04
[2025-08-15] MEDS: dilTIAZem 120MG ER CAP PO ONE (11:15)
[2025-08-15] MEDS: MAGNESIUM SULFATE 1GM/100ML 100 ML IV ONE (11:35)
[2025-08-15] MEDS: SPIRONOLACTONE 25 MG TAB PO ONE (11:45)
[2025-08-15] MEDS: LISINOPRIL 5 MG TAB PO ONE (17:41)
[2025-08-15] MEDS: MELATONIN 5 MG TAB ONE (20:58)
[2025-08-15] MEDS: MELATONIN 5 MG TAB PO ONE (21:40)
[2025-08-16] VITALS (7 sets, daily range): BP systolic 148–189; BP diastolic 75–97; PULSE 60–84; RESP 18–21; TEMP 97.9–98.9; O2SAT 96–97
[2025-08-16 07:43] LABS: Hematocrit 36.6 % (36.0-46.0); Hemoglobin 12.1 g/dL (12.2-16.2); Mean Corpuscular Hemoglobin 28.0 pg (28.0-32.0); Mean Corpuscular Volume 84.8 fL (80.0-100.0); Nucleated Red Blood Cells % 0.0 %
[2025-08-16 08:05] LABS: Alanine Aminotransferase 25 U/L (7-40); Albumin 4.6 g/dL (3.2-4.8); Alkaline Phosphatase 57 U/L (46-116); Anion Gap 11 (5-15); BUN/Creatinine Ratio 15.3 (10.0-20.0); Bilirubin, Total 0.9 mg/dL (0.2-1.0); Blood Urea Nitrogen 13 mg/dL (9-23); Calcium 9.7 mg/dL (8.7-10.4); Carbon Dioxide 26 mmol/L (20-31); Chloride 101 mmol/L (98-107); Potassium 3.8 mmol/L (3.5-5.1); Sodium 138 mmol/L (136-145); Total Protein 7.8 g/dL (5.7-8.2)
[2025-08-16 08:08] LABS: Glucose 113 mg/dL (74-106)
[2025-08-16] MEDS: LISINOPRIL 20 MG TAB PO SCH (09:38)
[2025-08-16] MEDS: dilTIAZem 120MG ER CAP PO SCH (09:38)
[2025-08-16] MEDS: SPIRONOLACTONE 25 MG TAB PO ONE (10:14)
--- NOTE | 2025-08-16 16:58 | DVHPNRES ---
Progress Note Date Seen: Aug 16, 2025 Resident Creating Document: ANTHONY HANKINS RESIDENT Medical Necessity Reason Pt with a Central, PICC or Fol: No Subjective Review of Systems This is a 39-year-old female with past medical history of hypertension from PCP clinic due to high blood pressure. Per patient, her blood pressure at clinic was more than 200 and was referred to ER. Upon ER arrival, blood pressure was 212/112. She also reports of nausea, and vomiting. She denies headache, chest pain, shortness of breath, palpitation, or blurry vision. In ER, patient was given oral amlodipine, clonidine, and IV haloperidol, which could not control blood patient and subsequently patient was put on nitroglycerin drip. PMHx: Hypertension Family history: Mother has hypertension, and father had diabetes Social history: Smokes cigar, 1 per day, drank occasionally, denies any other drug use. Lives at home with her mother and . Home medication: Patient was previously prescribed amlodipine 5 mg daily, but has not taken for a couple of months Allergic history: No known allergy Evaluated in bedside today. Patient denies acute symptoms like fever, cough, headache, chest pain, palpitation. Patient will be discharged tomorrow and follow-up with PCP. Family member not available to pharmacy picking tech her today. Objective vital signs Vital Sign Date Time Temp Pulse Resp B/P (MAP) Pulse Ox O2 Delivery O2 Flow Rate FiO2 08/16/25 13:00 98.3 68 20 189/87 (121) 96 98.3 08/16/25 08:00 Room Air* 0 21 Total Intake and Output 08/15/25 08/15/25 08/16/25 14:59 22:59 06:59 Intake Total 600 ml 800 ml Output Total 770 ml Balance -170 ml 800 ml medications Current Medications Medications Dose Ordered Sig/Kaleb Route Start Time Stop Time Status Last Admin Dose Admin Ondansetron HCl 4 mg Q4HP PRN IV 08/12/25 19:45 08/13/25 14:44 4 MG Acetaminophen 650 mg Q6HP PRN PO 08/12/25 19:45 08/15/25 05:21 650 MG Hydrochlorothiazide 25 mg DAILY PO 08/14/25 10:00 08/16/25 09:39 25 MG Labetalol HCl 10 mg Q4HP PRN IV 08/13/25 16:15 08/16/25 12:15 10 MG Enoxaparin Sodium 40 mg DAILY SC 08/14/25 10:00 08/16/25 09:39 40 MG Lisinopril 20 mg DAILY PO 08/16/25 10:00 08/16/25 09:38 20 MG Diltiazem HCl 240 mg DAILY PO 08/16/25 10:00 08/16/25 09:38 240 MG Spironolactone 50 mg DAILY PO 08/17/25 10:00 Examination General Appearance: Alert, Oriented X3, Cooperative, obese, and in mild distress HEENT: Atraumatic, PERRLA, EOMI, Mucous membrane moist/pink Respiratory: Clear to auscultation, Normal air movement Cardiovascular: Regular rate, Normal S1, Normal S2, No murmurs, no chest wall tenderness Abdominal: Normal bowel sounds, Soft, No tenderness, No hepatospenomegaly, No masses Extremities: No clubbing, No cyanosis, No edema, Normal pulses, No tenderness/swelling Skin: No rashes, No breakdown, No significant lesion Neuro: Normal gait, Normal speech, Strength at 5/5 X4 ext, Normal tone, Sensation intact, Cranial nerves 3-12 NL, Reflexes 2+ Psych/Mental Status: Mental status NL, Mood NL laboratory and microbiology Laboratory Tests 08/16/25 06:55 Test 08/16/25 06:55 Range/Units Serum Glucose 113 H 74-106 mg/dL Microbiology Date/Time Source Procedure Growth Status 08/13/25 09:15 Nose MRSA Screen - Final Complete Problem List/Assessment/Plan Problem List/Assessment/Plan 39-year-old female with past medical of hypertension, referred from PCP office due to high blood pressure. Patient was admitted on 08/12. Spironolactone 50 mg p.o. start today because blood pressure is above normal range. We will monitor blood pressure. NEUROLOGICAL Hypertensive emergency leading to possible hypertensive encephalopathy * Plan: IV antihypertensive CARDIOVASCULAR: Hypertensive emergency Medication nonadherence * EKGs shows, sinus rhythm with hypertrophic changes * Serial trop I within normal limits * Chest x-ray shows no significant intrathoracic abnormalities * Plan: lisinopril, hydrochlorothiazide and diltiazem, spironolactone and labetalol p.r.n. Monitor blood pressure, plan to discharge with lisinopril and hydrochlorothiazide. GASTROINTESTINAL/NUTRITION: Intractable Nausea and vomiting, on admission * Patient able to tolerate food well. * Plan: Zofran PRN ENDOCRINE: Prediabetes METABOLIC: Morbid obesity * Plan: Patient consulted for healthy lifestyle, including physical activity, and healthy food intake DIET: Cardiac diet DVT prophylax: Lovenox LINES/DEVICES IV access: Peripheral line Drips: Lovenox Disposition: tele Family: Patients mother updated at the bedside , full code status. More than 27 minute spent with patient and Case discussed with Dr. Chavarria. Plan discussed with: Patient, Other (Nurse) My Orders My Orders Orders - ANTHONY HANKINS Procedure Category Date Status Time Spironolactone PHA 08/17/25 In Process (Aldactone) 10:00 ANTHONY HANKINS Aug 16, 2025 16:58
[2025-08-16] MEDS: MELATONIN 5 MG TAB PO ONE (21:36)
[2025-08-17] VITALS (7 sets, daily range): BP systolic 151–177; BP diastolic 87–124; PULSE 68–85; RESP 16–20; TEMP 36.4; O2SAT 93–100
[2025-08-17] MEDS: LISINOPRIL 20 MG TAB PO SCH (10:47)
[2025-08-17] MEDS: SPIRONOLACTONE 25 MG TAB PO SCH (10:47)
[2025-08-17 10:57] LABS: Hematocrit 40.5 % (36.0-46.0); Hemoglobin 13.1 g/dL (12.2-16.2); Mean Corpuscular Hemoglobin 28.4 pg (28.0-32.0); Mean Corpuscular Volume 87.6 fL (80.0-100.0); Nucleated Red Blood Cells % 0.1 %
[2025-08-17 11:11] LABS: Chloride 99 mmol/L (98-107); Potassium 4.0 mmol/L (3.5-5.1); Sodium 136 mmol/L (136-145)
[2025-08-17 11:12] LABS: Anion Gap 10 (5-15); Calcium 10.0 mg/dL (8.7-10.4); Carbon Dioxide 27 mmol/L (20-31)
[2025-08-17 11:17] LABS: BUN/Creatinine Ratio 11.9 (10.0-20.0); Blood Urea Nitrogen 10 mg/dL (9-23)
[2025-08-17 11:23] LABS: Glucose 135 mg/dL (74-106)
[2025-08-17] MEDS: CARVEDILOL 3.125 MG TAB PO ONE (13:26)
--- NOTE | 2025-08-17 15:41 | DVHDSRES ---
Discharge Summary Date of Admission Resident Creating Document: ANTHONY HANKINS RESIDENT Aug 12, 2025 at 19:31 Date of Discharge: Aug 17, 2025 Labs/Diagnostic Data: Laboratory Results Test 08/17/25 13:40 08/17/25 10:27 08/16/25 06:55 08/14/25 03:15 White Blood Count 14.0 10^3/uL (4.4-10.8) Red Blood Count 4.62 10^6/uL (4.0-5.20) Hemoglobin 13.1 g/dL (12.2-16.2) Hematocrit 40.5 % (36.0-46.0) Mean Corpuscular Volume 87.6 fL (80.0-100.0) Mean Corpuscular Hemoglobin 28.4 pg (28.0-32.0) Mean Corpuscular Hemoglobin Concent 32.5 g/dL (32.0-36.0) Red Cell Distribution Width 14.4 % (11.8-14.3) Platelet Count 251 10^3/uL (140-450) Mean Platelet Volume 9.7 fL (6.9-10.8) Neutrophils (%) (Auto) 67.1 % (37.0-80.0) Lymphocytes (%) (Auto) 22.2 % (10.0-50.0) Monocytes (%) (Auto) 7.7 % (0.0-12.0) Eosinophils (%) (Auto) 2.4 % (0.0-7.0) Basophils (%) (Auto) 0.6 % (0.0-2.0) Neutrophils # (Auto) 9.4 10 ^3/uL (1.6-8.6) Lymphocytes # (Auto) 3.1 10 ^3/uL (0.4-5.4) Monocytes # (Auto) 1.1 10 ^3/uL (0-1.3) Eosinophils # (Auto) 0.3 10 ^3/uL (0-0.8) Basophils # (Auto) 0.1 10 ^3/uL (0-0.2) Nucleated Red Blood Cells 0.1 % Sodium Level 136 mmol/L (136-145) Potassium Level 4.0 mmol/L (3.5-5.1) Chloride Level 99 mmol/L (98-107) Carbon Dioxide Level 27 mmol/L (20-31) Anion Gap 10 (5-15) Blood Urea Nitrogen 10 mg/dL (9-23) Creatinine 0.84 mg/dL (0.550-1.02) Glomerular Filtration Rate Calc 90 mL/min (>90) BUN/Creatinine Ratio 11.9 (10.0-20.0) Serum Glucose 135 mg/dL (74-106) Calcium Level 10.0 mg/dL (8.7-10.4) Total Bilirubin 0.9 mg/dL (0.2-1.0) Aspartate Amino Transferase (AST) 24 U/L (13-40) Alanine Aminotransferase (ALT) 25 U/L (7-40) Alkaline Phosphatase 57 U/L (46-116) Total Protein 7.8 g/dL (5.7-8.2) Albumin 4.6 g/dL (3.2-4.8) Magnesium Level 1.9 mg/dL (1.6-2.6) Test 08/13/25 04:45 08/12/25 20:15 Troponin I High Sensitivity 4 ng/L (</=34) B-Type Natriuretic Peptide 22.77 pg/mL (0-100) Triglycerides Level 77 mg/dL (< 150) Cholesterol Level 221 mg/dL (< 200) LDL Cholesterol 161 mg/dL (< 100) HDL Cholesterol 60 mg/dL (40-59) Thyroid Stimulating Hormone (TSH) 0.69 uIU/mL (0.55-4.78) Urine Color Yellow (Yellow) Urine Clarity Turbid (Clear) Urine pH 5.5 (5.0-9.0) Urine Specific Handley 1.021 (1.001-1.035) Urine Protein Trace (Negative) Urine Ketones 2+ (Negative) Urine Blood Negative /uL (Negative) Urine Nitrite Negative (Negative) Urine Bilirubin Negative (Negative) Urine Urobilinogen Normal mg/dL (Negative) Urine Leukocyte Esterase Negative /uL (Negative) Urine Glucose Trace mg/dL (Normal) Other Laboratory Tests 08/17/25 10:27 Brief Hx & Hospital Course: HISTORY OF PRESENT ILLNESS: This is a 39-year-old female with past medical history of hypertension from PCP clinic due to high blood pressure. Per patient, her blood pressure at clinic was more than 200 and was referred to ER. Upon ER arrival, blood pressure was 212/112. She also reports of nausea, and vomiting. She denies headache, chest pain, shortness of breath, palpitation, or blurry vision. In ER, patient was given oral amlodipine, clonidine, and IV haloperidol, which could not control blood patient and subsequently patient was put on nitroglycerin drip. PMHx: Hypertension Family history: Mother has hypertension, and father had diabetes Social history: Smokes cigar, 1 per day, drank occasionally, denies any other drug use. Lives at home with her mother and . Home medication: Patient was previously prescribed amlodipine 5 mg daily, but has not taken for a couple of months Allergic history: No known allergy HOSPITAL COURSE: Patient was admitted at the hospital at the line of hypertensive emergency leading to possible hypertensive encephalopathy, she was suffering from intractable nausea and vomiting. The patient was primarily given clonidine, and labetalol injection but could not uncontrolled blood pressure. Subsequently patient was started on nitroglycerin which later on switched to nicardipine drip. EKG was showing sinus rhythm with LVH, otherwise no significant ST or T- wave changes. Serial trop I and BNP within normal limits. Patient was also started on diltiazem, lisinopril, and hydrochlorothiazide, due to poor control blood pressure, subsequently diltiazem was switched to nifedipine, increased dose of lisinopril, increased dose of hydrochlorothiazide, spironolactone and carvedilol. On 08/17, patient was feeling better, had no active complaint. Discharge plan discussed with the patient the patient discharged home.\\ Discharge plan: 47 minutes DISCHARGE PLAN: Nifedipine 90 mg daily Lisinopril 40 mg daily Hydrochlorothiazide 25 mg daily Carvedilol 12.5 mg b.i.d. Spironolactone 25 mg daily Follow up with the PCP within 1 week of discharge. Follow up with the discharge Clinic. Follow up with Nephrology for further workup of hypertension. FINAL DIAGNOSIS: Hypertensive emergency leading to possible hypertensive encephalopathy Hypertensive encephalopathy Sirs positive, with no end-organ damage Medication nonadherence Intractable Nausea and vomiting Prediabetes Morbid obesity Hypokalemia Condition at Discharge: Good Final Diagnosis/Problems List . Discharge Disposition: Home Discharge Instruct/Medications Unable to Obtain Active Prescriptions or Reported Meds Discharge Statement: "Patient was advised to return to the ER or call 911 if any headaches, dizziness, shortness of breath, chest pain, abdominal pain, bleeding, fevers, or worsening of medical condition. Patient was counseled about treatment plan, medications, possible side effects, patientverbalized understanding. All questions were answered to the best of my ability. This discharge took greater then 30 minutes in planning, reviewing documentation, counseling the patient, and discussing with other team members." ASSESSMENT ASSESSMENT Assessment JAHAIRA CANTU Aug 17, 2025 15:41
[2025-08-17] MEDS ORDERED: HYDR25TA4 PO (15:44)
[2025-08-17] MEDS ORDERED: CARV12.544 PO (15:44)
[2025-08-17] MEDS ORDERED: SPIR25TA8 PO (15:44)
[2025-08-17] MEDS ORDERED: NIFE90TA75 PO (15:44)
[2025-08-17] MEDS ORDERED: LISI20TA56 PO (15:44)
--- NOTE | 2025-08-17 17:29 | DVH ---
INDICATION: INDICATION: Hypertension TECHNIQUE: Multiple real-time sonographic images of the kidneys and bladder were obtained. COMPARISON: None FINDINGS: AORTA: 1.6 X 1.6 CM. PSV: 101.3 cm/sec. Measured at the level of the renal artery. RIGHT KIDNEY: Measures 12.6 cm in length, which is normal in size. There is normal echogenicity of the right kidney . No hydronephrosis. PSV: 94.8 cm/sec (< 180 cm/sec= normal); EDV: 32.3 cm/sec (< = 35 cm/sec normal) EDV/PSV= 0.34 cm/sec > = 0.2 = normal; RI+ 0.66 (< 0.75= normal) RENAL PSV /AORTA PSV RATIO (RAR) 0.9 (= 3.5 OR ABOVE STENOSIS) LEFT KIDNEY: Measures 10.3 cm in length, which is normal in size. There is normal echogenicity of the left kidney. No hydronephrosis. PSV = 67.6 CM/SEC (< 180 cm/s= normal); EDV = 30.7 cm/sec { < 35 cm/s= normal) EDV/PSV =0.45 cm/s ( > 0.2= normal); RI= 0.55 ( < 0.75 = normal) renal, PSV/AORTA PSV RATIO (RAR; 0.7 (3.5 or above = stenosis) IMPRESSION: 1. Normal sonographic appearance of the kidneys. No hydronephrosis. 2. No findings of renal artery stenosis on the right or left.
[2025-08-17] MEDS ORDERED: CARVEDILOL 3.125 MG TAB PO SCH (22:00)
--- NOTE | 2025-08-18 17:54 | DVHSR ---
APPROVED REPORT EXAM: Two-dimensional and M-mode echocardiogram with Doppler and color Doppler. Blood Pressure: 168/101 mmHg INDICATION EF RISK FACTORS Height: 5'5", Weight: 261 DIMENSIONS LVDd4.5 (3.8-5.7cm)LA (2D)3.6 (1.9-4.0cm)Aortic Root3.0 (2.0-3.7cm) LVDs2.8 (2.5-4.0cm)LA (MM) (1.9-4.0cm)Aortic Cusp Exc2.0 (1.5-2.0cm) EF (%) 67.0 (55-70%)Rt. Atrium3.4 (1.9-4.0cm)Asc. Aorta cm IVSd1.4 (0.7-1.1cm)RV (D) (1.8-2.4cm) PWd1.2 (0.7-1.1cm) Mitral Valve MitralMitral Stenosis E wave0.78m/sMV Mean GR.mmHg A wave0.85m/sMV Peak GR.mmHg E/A ratio0.92D MVAcm2 DECEL [id number] 1/2 Timems Aortic Valve Aortic ValveAortic Stenosis V11.37m/Donnie Mean GR.10mmHg V22.52m/Donnie Peak GR.26mmHg LVOT Diameter2.2 (1.8-2.4cm)Doppler AVA2.07cm2 Pulmonic Valve V21.16m/s Other Information Quality : Technically LimitedRhythm : Technically limited study due to body habitus. Conclusion Technically good study. Sinus rhythm. Left atrial enlargement. Mild aortic root enlargement. Concentric LVH. Valves appear to be structurally normal. EF of 60% with normal RV function. Dopplers unremarkable. No pericardial effusion masses or vegetations.
== END 2025-08-17 18:13 | disposition home or self-care (01) | DRG 71 ==
LOC: ER 14:05 → OVERFLOW 19:31 → ICU CENTRL 08-13 01:35 → TELE-EAST 08-14 17:12
PROVIDERS: ATTEND Internal Medicine
DX: I67.4 Hypertensive encephalopathy (principal); I16.1 Hypertensive emergency; Z68.41 Body mass index [BMI] 40.0-44.9, adult; R73.03 Prediabetes; E66.01 Morbid (severe) obesity due to excess calories; F17.210 Nicotine dependence, cigarettes, uncomplicated; Z91.199 Patient's noncompliance with other medical treatment and regimen due to unspecified reason; Z82.49 Family history of ischemic heart disease and other diseases of the circulatory system; Z83.3 Family history of diabetes mellitus
CPT/HCPCS: 36415; 71045; 80048; 80053; 80061; 81003; 82088; 83735; 83880; 84244; 84443; 84484; 85025; 87081; 93005; 93306; 93975; G0378; J2405; J3480